=== PATIENT | female | born 1945 | race Caucasian/White ===

== ENCOUNTER 2016-12-01 11:44 | Emergency (ER) | payer MEDICARE, BC ==
[2016-12-01 14:07] VITALS: BP 129/55
--- NOTE | 2016-12-01 15:10 | RAD ---
INDICATION: Fall. Neck pain COMPARISON: Cervical spine November 21, 2012 TECHNIQUE: Routine five-view imaging was performed FINDINGS: Bones: There are no acute bony findings. There are arthritic changes consisting of disc space narrowing at C5-C6 and C6-C7 with endplate sclerosis, uncinate process hypertrophy, and facet arthropathy. Craniocervical junction: The odontoid and atlantodental interval are normal. Alignment: Normal Disc spaces: The remaining disc spaces are well-maintained Soft tissues: The prevertebral soft tissues are normal. IMPRESSION: MODERATE MIDCERVICAL OSTEOPHYTE CHANGE. NO ACUTE FINDINGS
--- NOTE | 2016-12-01 15:14 | RAD ---
Indication: Right shoulder injury. 4 views of the right shoulder demonstrates superiorly subluxed humeral head. There is calcification just under the acromioclavicular joint and calcific tendinitis should BE considered. Degenerative changes of the glenohumeral joint is noted. IMPRESSION: Superiorly subluxed humeral head which may represent supraspinatous abnormality. There is suggestion of calcific tendinitis of the supraspinatous muscle. Degenerative changes of the glenohumeral joint are noted.
--- NOTE | 2016-12-01 15:15 | RAD ---
Indication: Left ankle injury. 3 views of left ankle demonstrates no fracture. Soft tissue swelling is noted. No other bone or joint abnormality is identified. IMPRESSION: Soft tissue swelling lateral left ankle.
--- NOTE | 2016-12-01 15:15 | RAD ---
INDICATION: Knee pain following traumatic injury/fall COMPARISON: None TECHNIQUE: AP, lateral, tunnel, and sunrise views were obtained. FINDINGS: There are no acute osseous findings. There is a small exostosis of the medial femoral condyle. There is minor patellofemoral joint space narrowing and there is mild traction spurring from the superior patella. There is no joint effusion. IMPRESSION: MINOR DEGENERATIVE CHANGES. SMALL BONY EXOSTOSIS MEDIAL FEMORAL CONDYLE. NO ACUTE BONY FINDINGS.
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
== END 2016-12-01 15:45 | disposition home or self-care (01) ==
LOC: UCCORT 11:44
DX: S93.402A Sprain of unspecified ligament of left ankle, initial encounter (principal); S83.92XA Sprain of unspecified site of left knee, initial encounter; S16.1XXA Strain of muscle, fascia and tendon at neck level, initial encounter; S80.212A Abrasion, left knee, initial encounter; W01.0XXA Fall on same level from slipping, tripping and stumbling without subsequent striking against object, initial encounter; Y93.9 Activity, unspecified; Y92.59 Other trade areas as the place of occurrence of the external cause; Z88.8 Allergy status to other drugs, medicaments and biological substances; Z91.030 Bee allergy status; M75.31 Calcific tendinitis of right shoulder
CPT/HCPCS: 72050; 99203; G0463